=== PATIENT | male | born 1965 ===

== ENCOUNTER → 2017-03-10 | Outpatient (REF) ==
--- NOTE | 2017-03-10 16:48 | REP ---
Left shoulder series: Three views. History: Degenerative disc disease. Findings: The left glenohumeral and acromioclavicular joints are normally aligned. There is subcortical cyst formation in the superior glenoid and in the humeral head. No bony erosive changes seen. Periarticular soft tissues are unremarkable. Impression: Small subcortical cyst formed in the superior glenoid and in the proximal humerus. No other significant abnormality. Signed by Hipolito Raman MD 03/10/2017 05:01 P
--- NOTE | 2017-03-10 16:49 | REP ---
Cervical spine series: Three views. History: Degenerative disc disease. Findings: Three views of the cervical spine show evidence of vascular calcification in the left neck consistent with atherosclerotic left carotid artery calcification. There is mild discogenic spurring at C5-6 and C6-7 consistent with early degenerative disc disease. No malalignment is seen. Vertebral body heights are preserved. AP and open mouth odontoid views are otherwise unremarkable. Impression: Mild degenerative disc disease C5-6 and C6-7. Vascular calcification suspected in the left carotid artery. Signed by Hipolito Raman MD 03/10/2017 05:01 P
== END ==
LOC: M SMT 12:58
PROVIDERS: ATTEND Internal Medicine
DX: Z02.71 Encounter for disability determination (principal)